=== PATIENT | male | born 1950 | race Caucasian/White ===

== ENCOUNTER 2018-12-29 07:50 | Emergency (ER) | payer BC ==
[~2018-12-29] VITALS: Ht 175.3 cm; Wt 87.1 kg
[2018-12-29] MEDS ORDERED: ASPIR 8181 MG (08:38)
[2018-12-29] MEDS ORDERED: PROTOPIC100 G1 (08:38)
[2018-12-29] MEDS ORDERED: FINASTERIDE1 MG PO (09:52)
[2018-12-29] MEDS ORDERED: TAMS0.4C PO (09:52)
[2018-12-29] MEDS ORDERED: MIRALAX17 GM PO (14:11)
== END 2018-12-29 14:36 | disposition home or self-care (01) ==
LOC: ER 07:50
DX: K59.09 Other constipation (principal); R10.84 Generalized abdominal pain